=== PATIENT | female | born 1980 | race American Indian/Alaskan Native ===

== ENCOUNTER 2016-09-13 14:34 | Outpatient (CLI) | payer MEDICAID ==
[2016-09-13] MEDS ORDERED: LACTATED RINGERS 500 ML IV ONE (15:25)
[2016-09-13] MEDS ORDERED: TYLENOL PO PRN (18:04)
[2016-09-13 20:50] LABS: Hematocrit 36.2 % (30.3-42.9); Hemoglobin 12.4 gm/dl (10.1-14.3); Mean Corpuscular HGB Conc 34 % (30-34); Mean Corpuscular Hemoglobin 30 pg (28-32); Mean Corpuscular Volume 87 fl (79-97); Platelet Count 138 K/mm3 (140-440); Red Blood Count 4.18 M/mm3 (3.65-5.03); Red Cell Distribution Width 14.8 % (13.2-15.2); White Blood Count 7.3 K/mm3 (4.5-11.0)
[2016-09-13 21:04] VITALS: BP 128/64
[2016-09-13 21:11] LABS: INR 1.11 (0.87-1.13)
[2016-09-13 21:12] LABS: Partial Thromboplastin Time 27.5 Sec. (24.2-36.6)
--- NOTE | 2016-09-14 09:44 | Ultrasound Report ---
OB ULTRASOUND GREATER THAN 14 WEEKS INDICATION: Patient fell 09/10/2016. COMPARISON: None similar during this gestation. TECHNIQUE: Transabdominal grayscale ultrasound with Doppler interrogation. Gestation: Farris Position: Cephalic Amniotic Fluid: WNL (7-24 cm) [place] = 16.3 cm Placenta: Fundal; no evidence of abruption. Placental Grade: I Heart Rate: 164 BPM Cervical length: 3.3 cm (Normal > 3 cm) NEUROANATOMY VISUALIZED: Cisterna Magnum Cerebellum Lateral Ventricle ANATOMY VISUALIZED: Stomach Kidneys Bladder Diaphragm Heart 3 Vessel Cord Abd. Cord Insert SPINE VISUALIZED: Limited spine due to position The following are not demonstrated due to maternal body habitus or lie: 4 chamber heart, spine, choroid plexus. BPD: 7.1 cm = 28 w 3 d HC: 26.4 cm = 28 w 5 d AC: 26.6 cm = 30 w 5 d FL: 5.6 cm = 29 w 2 d HC/AC Ratio: 0.99 Cephalic Index: 81.3 Estimated Weight: 1473 grams Clinical age = 29 w 3 d EDC: 11/26/16 US Gest. Age = 29 w 2 d EDC: 11/27/2016 CONCLUSION: Single, viable intrauterine gestation with ultrasound estimated age of 29 weeks and 2 days and EDC of 11/27/2016, currently in vertex lie with details, as above. Thank you for the opportunity to participate in this patient's care.
== END 2016-09-13 21:30 | disposition home or self-care (01) ==
LOC: TRG 14:34 → LD 16:25 → TRG 21:30
PROVIDERS: ATTEND Obstetrics & Gynecology
DX: O09.523 Supervision of elderly multigravida, third trimester (principal); O26.893 Other specified pregnancy related conditions, third trimester; O47.03 False labor before 37 completed weeks of gestation, third trimester; W19.XXXD Unspecified fall, subsequent encounter; Z3A.29 29 weeks gestation of pregnancy
CPT/HCPCS: 36415; 76805; 82962; 85025; 85610; 85730; 86850; 86900; 86901; J2790

== ENCOUNTER 2016-11-19 20:12 | Outpatient (CLI) | payer MEDICAID ==
[2016-11-19 20:36] VITALS: BP 101/62
== END 2016-11-19 21:38 | disposition home or self-care (01) ==
LOC: TRG 20:12
PROVIDERS: ATTEND Obstetrics & Gynecology
DX: O09.523 Supervision of elderly multigravida, third trimester (principal); O26.893 Other specified pregnancy related conditions, third trimester; M54.9 Dorsalgia, unspecified; Z3A.38 38 weeks gestation of pregnancy

== ENCOUNTER 2016-11-25 13:21 | Outpatient (CLI) | payer MEDICAID ==
[2016-11-25 16:31] LABS: Bacteria,Urine 1+ /HPF (Negative); Bilirubin,Urine NEG (Negative); Blood,Urine NEG (Negative); Ketones,Urine NEG (Negative); Leukocyte Esterase,Urine TR (Negative); Mucus,Urine FEW /HPF; Nitrite,Urine NEG (Negative); Protein,Urine <15 mg/dL mg/dL (Negative); Urobilinogen,Urine < 2.0 mg/dL (<2.0); WBC,Urine < 1.0 /HPF (0.0-6.0)
[2016-11-29 18:17] VITALS: BP 126/56
== END 2016-11-25 17:30 | disposition home or self-care (01) ==
LOC: TRG 13:21
PROVIDERS: ATTEND Obstetrics & Gynecology
DX: O47.1 False labor at or after 37 completed weeks of gestation (principal); Z3A.38 38 weeks gestation of pregnancy
CPT/HCPCS: 59025; 81001

== ENCOUNTER 2018-02-09 10:32 | Outpatient (CLI) | payer MEDICAID | END 2018-02-09 15:00 | disposition home or self-care (01) | LOC: LAB 10:32 → TRG 13:29 → LAB 15:00 | PROVIDERS: ATTEND Obstetrics & Gynecology | DX: O47.03 False labor before 37 completed weeks of gestation, third trimester (principal); Z3A.29 29 weeks gestation of pregnancy | CPT/HCPCS: 86850; 86900; 86901; 96372; J2790 ==